=== PATIENT | male | born 1995 | race Hispanic/Latino ===

== ENCOUNTER 2022-01-21 16:09 | Observation (INO) | payer OTHER, SELFPAY ==
[2022-01-21 16:30] VITALS: BP 134/81; PULSE 87; RESP 20; TEMP 36.6; O2SAT 97
--- NOTE | 2022-01-21 18:47 | DI.US.S_ITS ---
PROCEDURE: US ABDOMEN LIMITED INDICATIONS: ? appy TECHNIQUE: Real-time focused scanning was performed of the abdomen with attention to the appendix, with image documentation. COMPARISON: None. FINDINGS: Appendix visualization: Yes. Appendix measurements: 0.4 cm. Associated findings: Echogenic fat: No. Appendiceal compressibility: Noncompressible. Appendicoliths: Not identified. Nearby free fluid: Small amount of free fluid. Lymphadenopathy: Not identified. Tenderness on exam: Present. IMPRESSION: The appendix is not dilated. However it appears noncompressible and there is a small amount of free fluid. Findings raise the possibility of acute appendicitis. Recommend further evaluation with CT abdomen pelvis with IV contrast. Comment: Findings were discussed with Barbara Haskins at the time of dictation. Dictated by: Kwasi Almeida M.D. on 01/21/2022 at 20:42 Approved by: Kwasi Almeida M.D. on 01/21/2022 at 20:45
[2022-01-21 18:51] LABS: Hematocrit 44.2 % (41-53); Hemoglobin 15.4 g/dL (13.5-17.5); Mean Corpuscular HGB Conc 34.8 % (30-36); Mean Corpuscular Hemoglobin 31.8 PG (26-34); Mean Corpuscular Volume 91.6 fL (80-100); Platelet Count 284 X10^3/uL (150-400); Red Blood Cell Count 4.83 X10^6/uL (4.5-5.9); Red Cell Distribution Width 13.1 % (11.6-14.8); White Blood Cell Count 13.3 X10^3/uL (4.5-11.0)
[2022-01-21 18:55] LABS: Add Manual Diff / Slide Review YES
[2022-01-21 19:16] LABS: Neutrophils Absolute Manual 10108 /uL (3000-5900); Total Cells Counted 100
[2022-01-21 19:17] LABS: RBC Morphology Normal Morphology
[2022-01-21 19:31] LABS: Alanine Aminotransferase 31 IU/L (<50); Albumin 4.4 g/dL (3.5-5.0); Albumin Globulin Ratio 1.4 (1.0-2.8); Alkaline Phosphatase 112 U/L (38-126); Aspartate Aminotransferase 29 IU/L (17-59); BUN Creatinine Ratio 21.2 (6-22); Bilirubin Total 0.5 mg/dL (0.2-1.3); Blood Urea Nitrogen 18 mg/dL (9-20); Calcium 8.9 mg/dL (8.4-10.2); Carbon Dioxide 28 mmol/L (22-32); Chloride 103 mmol/L (98-107); Estimated Glomerular Filt Rate > 60 mL/min (>60); Globulin 3.1 g/dL (1.7-4.1); Glucose 118 mg/dL (70-100); HEMOLYSIS 17 (0-50); Lipase 60 U/L (23-300); Potassium 3.9 mmol/L (3.4-5.1); Sodium 139 mmol/L (137-145); Total Protein 7.5 g/dL (6.3-8.2)
[2022-01-21 20:13] LABS: COVID19 -Nasal RAPID Negative (Negative)
--- NOTE | 2022-01-21 20:14 | ED.GENADULT ---
HPI - General Adult General Chief complaint: Abdominal Pain Stated complaint: r/o appendicitis Time Seen by Provider: 01/21/22 18:25 Source: patient Mode of arrival: Ambulatory History of Present Illness HPI narrative: Otherwise healthy 26-year-old gentleman presents with 24 hours of abdominal pain. Began last night with periumbilical pain and over the course of 24 hours has increased in intensity and localized to the right lower quadrant. He had a bowel movement earlier today that did not influences pain. He has nausea but not actually vomiting. Describes no dysuria or flank pain. No fevers but general malaise. He describes no chest pain, palpitations, dyspnea, headache. Related Data Allergies Allergy/AdvReac Type Severity Reaction Status Date / Time No Known Drug Allergies Allergy Verified 01/21/22 16:35 Review of Systems Review of Systems Narrative: Remainder of complete review of systems is otherwise unremarkable except for that included in the HPI. Patient History Social History Smoking Status: Never smoker Smoking Status: Never smoker alcohol intake frequency: holidays/special occasions only Substance Use Type: does not use Exam Initial Vital Signs Initial Vital Signs: Vital Signs Temperature 97.8 F 01/21/22 16:30 Pulse Rate 87 01/21/22 16:30 Respiratory Rate 20 01/21/22 16:30 Blood Pressure 134/81 01/21/22 16:30 Pulse Oximetry 97 01/21/22 16:30 Oxygen Delivery Method 01/21/22 16:30 General: Healthy appearing, in mild distress. Able to give a complete and coherent history. Well-nourished well-developed HEENT: Moist mucous membranes, normal sclera with reactive pupils, Neck: supple Respiratory: Lungs are clear to auscultation, no wheezing no rales no rhonchi. Full and symmetrical air movement Cardiac: Regular rate and rhythm no murmurs no bruits Abdomen: Mild diffuse tenderness with increasing left lower quadrant tenderness causing severe right lower quadrant tenderness and significant right lower quadrant tenderness with developing peritoneal signs. No flank pain Skin: Warm and dry, no rashes Neurologic: Grossly neurologically intact with no obvious asymmetries or abnormalities Extremities: No trauma, well perfused Psych: Cooperative, appropriate insight and affect Course Orders Ordered: ED Orders 01/21/22 20:46 CT abdomen pelvis w con Stat Sodium Chloride (Normal Saline 0.9%) 1,000 mls @ 150 mls/hr IV CONT MORRIS Last Admin: 01/21/22 23:36 Dose: 150 mls/hr Documented By: MESSI Piperacillin Sod/Tazobactam (Sod 3.375 gm/ Sodium Chloride) 100 mls @ 25 mls/hr IV Q8H MORRIS Last Admin: 01/21/22 23:33 Dose: 25 mls/hr Documented By: MESSI Vital Signs Vital signs: Vital Signs - 8 hr 01/21/22 16:30 Temperature 97.8 F Pulse Rate 87 Respiratory Rate 20 Blood Pressure 134/81 Pulse Oximetry 97 Oxygen Delivery Method Room Air Medical Decision Making Lab Data Result diagrams: 01/21/22 18:35 01/21/22 18:35 Labs: Lab Results 01/21/22 01/21/22 01/21/22 Range/Units 18:35 18:35 19:26 WBC 13.3 H (4.5-11.0) X10^3/uL RBC 4.83 (4.5-5.9) X10^6/uL Hgb 15.4 (13.5-17.5) g/dL Hct 44.2 (41-53) % MCV 91.6 (80-100) fL MCH 31.8 (26-34) PG MCHC 34.8 (30-36) % RDW 13.1 (11.6-14.8) % Plt Count 284 (150-400) X10^3/uL Neut % (Auto) Not Reportable Lymph % (Auto) Not Reportable [place] % (Auto) Not Reportable Eos % (Auto) Not Reportable Baso % (Auto) Not Reportable Lymph # (Auto) Not Reportable [place] # (Auto) Not Reportable Baso # (Auto) Not Reportable Total Counted 100 Seg Neutrophils % 76.0 H (38-70) % Lymphocytes % (Manual) 19.0 L (25-45) % Monocytes % (Manual) 2.0 (2-11) % Eosinophils % (Manual) 3.0 (2-4) % Neutrophils # (Manual) 84492 H (9180-3791) /uL RBC Morphology Normal morphology Sodium 139 (137-145) mmol/L Potassium 3.9 (3.4-5.1) mmol/L Chloride 103 (98-107) mmol/L Carbon Dioxide 28 (22-32) mmol/L BUN 18 (9-20) mg/dL Creatinine 0.85 (0.66-1.25) mg/dL Estimated GFR > 60 (>60) mL/min BUN/Creatinine Ratio 21.2 (6-22) Glucose 118 H (70-100) mg/dL Calcium 8.9 (8.4-10.2) mg/dL Total Bilirubin 0.5 (0.2-1.3) mg/dL AST 29 (17-59) IU/L ALT 31 (<50) IU/L Alkaline Phosphatase 112 (38-126) U/L Total Protein 7.5 (6.3-8.2) g/dL Albumin 4.4 (3.5-5.0) g/dL Globulin 3.1 (1.7-4.1) g/dL Albumin/Globulin Ratio 1.4 (1.0-2.8) Lipase 60 (23-300) U/L SARS-CoV-2 (PCR) Negative (Negative) Urine Dip Bedside Urine Glucose Negative Bedside Urine Bilirubin - Negative Bedside Urine Ketone - Negative Urine Specific [place] 1.015 Bedside Urine Occult Blood - Negative Bedside Urine pH 6.0 Bedside Urine Protein - Negative Bedside Urine Urobilinogen - Negative Bedside Urine Nitrite - Negative Bedside Urine Leukocytes - Negative Esterase Point of care testing: Urine Dip Bedside Urine Glucose Negative Bedside Urine Bilirubin - Negative Bedside Urine Ketone - Negative Urine Specific [place]herty 1.015 Bedside Urine Occult Blood - Negative Bedside Urine pH 6.0 Bedside Urine Protein - Negative Bedside Urine Urobilinogen - Negative Bedside Urine Nitrite - Negative Bedside Urine Leukocytes - Negative Esterase Imaging Data US - abdomen: Radiologist's Impression: FINDINGS:? Appendix visualization:? Yes. ? Appendix measurements:? 0.4 cm. ? Associated findings:? Echogenic fat:? No. Appendiceal compressibility:? Noncompressible. Appendicoliths:? Not identified. Nearby free fluid:? Small amount of free fluid. Lymphadenopathy:? Not identified. Tenderness on exam:? Present. ? IMPRESSION:? The appendix is not dilated.? However it appears noncompressible and there is a small amount of free fluid.? Findings raise the possibility of acute appendicitis.? Recommend further evaluation with CT abdomen pelvis with IV contrast. ? Comment: Findings were discussed with Barbara Haskins at the time of dictation. ? Dictated by: Kwasi Almeida M.D. on 01/21/2022 at 20:42 ? ? CT scan - abdomen/pelvis: Radiologist's Impression: FINDINGS:? Image quality:? Excellent.? ? Lung bases:? There is mild dependent atelectasis bilaterally.? ? Heart:? Heart is normal in size. ? ? ABDOMEN: Liver:? No mass lesion. Gallbladder:? Within normal limits without calcified gallstones.? ? Biliary ducts:? No biliary ductal dilatation.? ? Pancreas:? Unremarkable.? ? Spleen:? Normal in size.? ? Adrenal Glands:? No adrenal nodules.? ? Kidneys and Ureters:? No hydronephrosis.? ? ? Stomach and Bowel:? Stomach, small bowel loops, and colon are normal in caliber and wall thickness.? The appendix demonstrates abnormal enlargement measuring up to 1.1 cm with wall thickening and enhancement as well as periappendiceal fat stranding consistent with acute appendicitis.? There is a small amount of adjacent free fluid in the right pericolic gutter.? No free air.? No discrete abscess collection.? There is colonic diverticulosis without acute diverticulitis. ? Ventral Wall: ? No hernia.? Abdominal Nodes:? No retroperitoneal or mesenteric adenopathy by size criteria.? Vessels:? Aorta and inferior vena cava are normal in size.? ? PELVIS: Pelvic Organs:? Unremarkable.? ? Bladder:? Unremarkable.? ? Pelvic Nodes: No enlarged lymph nodes.? Miscellaneous: No inguinal hernias are seen. ? ? ? Bones:? Visualized osseous structures demonstrate no suspicious focal lesions. ? IMPRESSION:? ? 1. Findings consistent with acute appendicitis.? A small amount of adjacent free fluid is nonspecific but perforation cannot be excluded.? No associated abscess or free air.? ? The findings discussed with Dr. Haskins on 01/21/2022 at 10:20 p.m..? ? ? Dictated by: Lorenzo Chris M.D. on 01/21/2022 at 22:18 ? ? [facility] Narrative Medical decision making narrative: 26-year-old gentleman with right lower quadrant pain concerning for appendicitis mild leukocytosis. Ultrasound is equivocal. Is reviewed with Radiology, noncompressible but also nondilated appendix is appreciated with free fluid surrounding it. Patient has been clinically examined by Dr. Henley, general surgery who requests CT scan. Patient is feeling better after medication and CT scan is ordered. CT scan confirms acute appendicitis. Patient will be admitted to Dr. Henley. Fluids, NPO, Zosyn is started. Findings and anticipated course reviewed with the patient. At this time he is not acutely toxic, pain is controlled, Questions are answered he is safe for transfer to the floor. Discharge Plan Departure Patient Disposition: Admitted as Observation Clinical Impression: Acute appendicitis Admit Date/Time: 01/21/22 23:12 Admit Provider: Estiven Henley
--- NOTE | 2022-01-21 20:46 | DI.CT.S_ITS ---
PROCEDURE: CT ABDOMEN PELVIS W CON INDICATIONS: RLQ pain, equivocal US TECHNIQUE: After the administration of IV contrast, axial sections were acquired from the lung bases to the pubic symphysis. Coronal and sagittal reformats were performed. For radiation dose reduction, the following was used: automated exposure control, adjustment of mA and/or kV according to patient size. COMPARISON: [facility], , US ABDOMEN LIMITED, 01/21/2022, 18:54. FINDINGS: Image quality: Excellent. Lung bases: There is mild dependent atelectasis bilaterally. Heart: Heart is normal in size. ABDOMEN: Liver: No mass lesion. Gallbladder: Within normal limits without calcified gallstones. Biliary ducts: No biliary ductal dilatation. Pancreas: Unremarkable. Spleen: Normal in size. Adrenal Glands: No adrenal nodules. Kidneys and Ureters: No hydronephrosis. Stomach and Bowel: Stomach, small bowel loops, and colon are normal in caliber and wall thickness. The appendix demonstrates abnormal enlargement measuring up to 1.1 cm with wall thickening and enhancement as well as periappendiceal fat stranding consistent with acute appendicitis. There is a small amount of adjacent free fluid in the right pericolic gutter. No free air. No discrete abscess collection. There is colonic diverticulosis without acute diverticulitis. Ventral Wall: No hernia. Abdominal Nodes: No retroperitoneal or mesenteric adenopathy by size criteria. Vessels: Aorta and inferior vena cava are normal in size. PELVIS: Pelvic Organs: Unremarkable. Bladder: Unremarkable. Pelvic Nodes: No enlarged lymph nodes. Miscellaneous: No inguinal hernias are seen. Bones: Visualized osseous structures demonstrate no suspicious focal lesions. IMPRESSION: 1. Findings consistent with acute appendicitis. A small amount of adjacent free fluid is nonspecific but perforation cannot be excluded. No associated abscess or free air. The findings discussed with Dr. Haskins on 01/21/2022 at 10:20 p.m.. Dictated by: Lorenzo Chris M.D. on 01/21/2022 at 22:18 Approved by: Lorenzo Chris M.D. on 01/21/2022 at 22:22
[2022-01-21 23:15] VITALS: BP 121/57; PULSE 58; RESP 18; TEMP 36; O2SAT 99; BMI 22.7
[2022-01-21] MEDS: PIPERACILLIN/TAZO 3.375 GM in SODIUM CHLORIDE 0.9% 100 ML IV (23:33)
[2022-01-21] MEDS: SODIUM CHLORIDE 0.9% 1,000 ML 150 ML IV (23:36)
[2022-01-22] VITALS (19 sets, daily range): BP systolic 100–148; BP diastolic 52–96; PULSE 57–96; RESP 12–21; TEMP 36.2–36.7; O2SAT 93–100; BMI 22.7
--- NOTE | 2022-01-22 | PATH_ITS ---
[facility] Accession Number: [id number] . 01 Material submitted: . appendix - APPENDIX . 01 Clinical history: . R/O APPENDICITIS . 01 Diagnosis: Appendix, Appendectomy: Appendicitis and serositis with perforation. [facility] 01/26/2022 1723 Local . 01 Electronically signed: . Trang Marie MD, Pathologist NPI- [id number] . 01 Gross description: . Received in formalin in a specimen container, labeled with the patient's name and medical record number, appendix, is an intact appendix specimen with a stapled resection margin with a great amount of fibroadipose tissue that measures 6.5 cm in length and 0.6 cm in diameter. The stapled resection margin measures 1.2 cm and is entirely inked in blue. The serosal surface is diffusely dusky, pink-odell, focally covered by hemorrhagic and grayish exudate. Distinct perforations are grossly identified on the serosal surface. The specimen is opened to reveal a 0.5 cm in diameter lumen filled by fecal content. The average wall thickness is 0.2 cm. Lead Pastor sections are submitted as follows: A1: Appendix bisected and entirely submitted. A2: Specimen body and resection margin. ([id number]) /FRR 01/26/2022 0232 Local . 01 Pathologist provided ICD-10: K35.20 . 01 CPT . 115049 Specimen Comment: A courtesy copy of this report has been sent to [phone] Performed at: 01 [facility] [address] [place] [address] [address] [facility], [place], [place] [id number] MD Lorenzo Gama MD Phone: [phone]
[2022-01-22] MEDS: PIPERACILLIN/TAZO 3.375 GM in SODIUM CHLORIDE 0.9% 100 ML IV ×2 (06:14→15:04)
--- NOTE | 2022-01-22 09:27 | CM.DANOTE ---
DCP Assessment: Payor: [facility] PCP: Unknown Pt is a 26 y.o. M who arrived to the ED with abdominal pain. Pt states that he has nausea but no vomiting. Pt states that he has had this pain for the past [address] scan was ordered and confirmed acute appedicitis. Pt admitted under OBS for lap appendectomy. DCP met with pt this morning bedside. Pt laying in bed watching TV. DCP introduced herself and role. Pt states that he does not remember the name of his PCP but she is located here at the hospital. Pt states that he lives in a tent with some roommates. Pt states that he currently works but does not drive POV. Pt states that his friends or employer helps with plans to drive him around when needed. Pt states that when he is able to get discharged, his employer is helping with coordination of transport. Pt declines use of DME. DCP identifies that transport back home could be a potential barrier. DCP to continue to monitor. P: Pt to have a lap appendectomy today. Pt to discharge home when medically stable via employer or friend POV. Diamante Chino RN/SIOBHAN Discharge Planning/Care Management CM Discharge Assessment Start: 01/22/22 08:41 Freq: Status: Active Protocol: Document 01/22/22 09:25 KAILASH (Rec: 01/22/22 09:27 [id number]) Discharge Planning Assessment Assigned Ob Tech Diamante Chino RN/SIOBHAN Advance Directives? No History Provided By Patient,Medical Record Comment Pt states that he lives in a tent with roommates. Household Members friend(s) Type of transporation used prior to Relies on Others admit Independent with ADL's Yes Is patient alert and oriented? Yes Caregiver for Another No Discharge Plan Home Referrals Initiated None needed Additional Comment At this time Whiteboard Updated in Patient Room with Yes name and ext. # of Ob Tech Review Status In Process Please Provide Date Initial DC 01/22/22 Assessment Was Performed Next Review Type Continued Stay Review
[2022-01-22] MEDS: LACTATED RINGERS 1,000 ML 42 ML IV ×2 (14:30→16:08)
--- NOTE | 2022-01-22 14:33 | P.HP_ITS ---
History of Present Illness History of Present Illness Date Patient Seen: 01/22/22 Time Patient Seen: 14:33 Chief complaint: r/o appendicitis Narrative: 26-year-old healthy male admitted to the hospital with acute appendicitis. Developed right lower quadrant pain for the past 2 days. Associated nausea no vomiting. Presented to the emergency room yesterday 01/21/2022 at [facility] for further evaluation. At admission S workup was significant for WBC 13, CT abdomen pelvis demonstrates acute appendicitis without abscess. he has never had prior abdominal surgery. No significant past medical history. He feels improvement in his abdominal pain since admission. He has received Zosyn Patient History Family & Social History Social History: household members friend(s) Tobacco & Substance use: Smoking Status Never smoker alcohol intake frequency holiday/special occasion Substance Use Type does not use Meds Home Medications and Allergies Allergies Allergy/AdvReac Type Severity Reaction Status Date / Time No Known Drug Allergies Allergy Verified 01/21/22 16:35 Exam Vital Signs (past 8 hours): - 01/22/22 08:20 01/22/22 07:52 Temperature 97.5 F L Pulse Rate 57 L Respiratory Rate 16 Blood Pressure 104/57 L Pulse Oximetry 99 96 Oxygen Delivery Method Room Air Oxygen Flow Rate 0 Oxygen Delivery Method Room Air Oxygen Flow Rate 0 Narrative Exam Narrative: GENERAL: Adult male in no apparent distress HEENT: No scleral icterus CV: Regular rate, no peripheral edema LUNGS: No increased work of breathing. Patient speaks in full sentences without oxygen support. ABDOMEN: Tender right lower quadrant. No peritonitis. NEURO: Nonfocal, normal strength throughout SKIN: Warm and dry Objective Labs Result Diagrams: 01/21/22 18:35 01/21/22 18:35 Labs: Laboratory Results - last 24 hr 01/21/22 01/21/22 01/21/22 18:35 18:35 19:26 WBC 13.3 H RBC 4.83 Hgb 15.4 Hct 44.2 MCV 91.6 MCH 31.8 MCHC 34.8 RDW 13.1 Plt Count 284 Neut % (Auto) Not Reportable Lymph % (Auto) Not Reportable [place] % (Auto) Not Reportable Eos % (Auto) Not Reportable Baso % (Auto) Not Reportable Lymph # (Auto) Not Reportable [place] # (Auto) Not Reportable Baso # (Auto) Not Reportable Total Counted 100 Seg Neutrophils % 76.0 H Lymphocytes % (Manual) 19.0 L Monocytes % (Manual) 2.0 Eosinophils % (Manual) 3.0 Neutrophils # (Manual) 65061 H RBC Morphology Normal morphology Sodium 139 Potassium 3.9 Chloride 103 Carbon Dioxide 28 BUN 18 Creatinine 0.85 Estimated GFR > 60 BUN/Creatinine Ratio 21.2 Glucose 118 H Calcium 8.9 Total Bilirubin 0.5 AST 29 ALT 31 Alkaline Phosphatase 112 Total Protein 7.5 Albumin 4.4 Globulin 3.1 Albumin/Globulin Ratio 1.4 Lipase 60 SARS-CoV-2 (PCR) Negative Assessment & Plan Assessment and plan (1) Acute appendicitis: Status: Acute Assessment & Plan narrative: 26-year-old male with symptoms and radiographic findings of acute appendicitis. CT abdomen pelvis was personally reviewed and interpreted. Demonstrates dilated appendix small amount of free fluid no abscess. We discussed management including both operative and non operative management. Following discussion his preference is to proceed with laparoscopic appendectomy. Overview of the operation was discussed with the patient. Surgical risks including bleeding, infection, staple line leak, damage to surrounding structures, hernia formation were discussed. His questions have been answered and he is in agreement with this plan. Time Spent With Patient Critical Care time: I spent a total of [] minutes of critical care time on this patient's care today; this time is exclusive of procedural time. Quality VTE Deep Vein Thrombosis/Pulmonary Embolism Present on Admission: No
[2022-01-22] MEDS: BUPIVACAINE 0.25% (PF) VIAL 30 ML INJ (15:39)
--- NOTE | 2022-01-22 15:47 | SUR.OPER ---
Supine on padded OR bed, head on pillow, right arm secured on padded arm boards at <90 degrees abduction, left arm padded at tucked at side, legs uncrossed, safety belt at thigh, tape over blanket over lower legs. Gel pad placed under bilateral heels.
--- NOTE | 2022-01-22 16:15 | P.OP_ITS ---
Operative Date/Time/Diagnoses Date of procedure: 01/22/22 Time of procedure: 16:15 Pre-op diagnosis: Acute appendicitis Post-op diagnosis: same Procedure & Clinicians Procedure: Laparoscopic appendectomy Same procedure as scheduled: Yes Indications: Symptoms and radiographic findings consistent with acute appendicitis. Surgeon: Arturo Mendoza Click Yes if Unassisted: Yes Anesthesia Type: General Operative Notes Findings: Partially retrocecal appendix. Acutely inflamed but not perforated. Specimen(s): other (Appendix) Estimated Blood Loss (mL): 50 Procedure in detail: Patient was brought to the operating room placed supine on the table. Bilateral lower extremity compression devices were applied. Anesthesia was induced and they intubated with an endotracheal tube. They received 3.375 g of Zosyn prior to skin incision. The left arm was tucked and appropriately padded. They were prepped and draped in sterile fashion. Time-out was performed. An infraumbilical incision was made the umbilical stalk was grasped and elevated and incision was made and the abdomen was entered atraumatically. A 12 mm balloon trocar was then placed through the incision and pneumoperitoneum of 14 mm Hg was established. The scope was then inserted and the abdomen inspected, there was no evidence of injury upon entry. Two 5 mm ports were placed under direct visualization, one in the left lower quadrant and second in the lower midline. A thorough laparoscopic evaluation was performed inspecting all four quadrants. The patient was then tilted right side up. The small bowel was then swept to the upper aspect of the abdomen. The tenie were followed to the base of the cecum where the appendix was identified. It was partially retrocecal and I mobilized the cecum medially in order to completely expose it by incising the white line of Toldt. The appendix was was mobilized from its lateral attac hments. It was acutely inflamed but not perforated. The appendix was grasped and a window within the mesentery was made at the base of the appendix using the [place] dissector with care to avoid injuring the cecum. The mesoappendix was then divided using the endo-stapler with a staple length of 2.5 mm-white load. The mesenteric staple line was inspected for hemostasis. The appendix was then a mputated flush at the cecum using the endo-stapler blue load. The specimen was retrieved using a endoscopic retrieval bad through the 10 mm infra-umbilical port. The right paracolic gutter and the pouch of Hieu were irrigated The 5 mm ports were then removed under direct visualization. The umbilical fascial incision was closed with 0 Vicryl in a figure-eight fashion. The skin wounds were irrigated and closed with 4-0 Monocryl followed by the application of Dermabond. Sponge instrument count at the end of the operation was correct. The patient tolerated procedure well was extubated and transferred to the postoperative care unit in stable condition. Complications: none Post-operative Condition: stable Disposition: Acute Care Plan for aftercare: May discharge later today
[2022-01-22] MEDS: OXYCODONE/ACETAMINOPHEN 5/325 TABLET 1 TAB PO (16:53)
--- NOTE | 2022-01-22 16:59 | SUR.PHASEI ---
Pt A&Ox4, reports pain as tolerable, denies nausea, dressing C/D/I, VSS, and ready to transfer to room. Report given to OMAR Rueda using SBAR with time allowed for questions. Left message to notifiy Dr. Mendoza of some challenges with discharge with RX, and ride, made OMAR Rueda aware.
[2022-01-22] MEDS: ACETAMINOPHEN 325 MG TABLET 650 MG PO ×2 (19:21→23:50)
--- NOTE | 2022-01-22 19:41 | PC.NURSE ---
Pt is A&OX3, VSS, afebrile on RA. C/o intermittent abdominal pain but declines any pain medications this shift. He is ambulates independently with steady gait in his room. He is taken to PRE Op at 1430 this afternoon and returns at 1720. He is A&OX3. Lap sites x3 c/d/i, he denies n/v and tolerates po diet well. RN Left message for MD Mendoza pt requesting discharge tomorrow a.m. as he lives on [facility] and transportation will be available for him tomorrow a.m. Pt reports pain manageable this evening.
[2022-01-22] MEDS: ONDANSETRON 4 MG/2 ML INJ IV (20:34)
[2022-01-22] MEDS: SODIUM CHLORIDE 0.9% 1,000 ML 150 ML IV (20:34)
--- NOTE | 2022-01-22 20:53 | PC.NURSE ---
Patient is alert and oriented. Breath sounds CTA with RA sat of 98%. HRR. Denied nausea at time of assessment but now complaining of nausea so medicated with Zofran. No BT auscultated and denies flatus. Up to bathroom with SBA and denied dysuria with urination. Complained of 5/10 abdominal pain and was medicated with scheduled Tylenol at start of shift; declined oxycodone. Is able to move himeslf in bed. Steri-strips intact to 3 lap sites on abdomen; CDI. Agreeable to having bilateral calf SCD's placed after giving information about DVT prevention. Fall risk score is low so bed alarm is not activated but patient instructed to call for assistance when getting out of bed.
[2022-01-23 01:24] VITALS: BP 110/60; PULSE 67; RESP 17; TEMP 36.4; O2SAT 98
[2022-01-23] MEDS: SODIUM CHLORIDE 0.9% 1,000 ML 150 ML IV (03:52)
[2022-01-23 05:42] VITALS: BP 125/59; PULSE 83; RESP 17; TEMP 37.1; O2SAT 97
[2022-01-23] MEDS: ACETAMINOPHEN 325 MG TABLET 650 MG PO (05:52)
[2022-01-23 07:48] VITALS: BP 134/75; PULSE 97; RESP 18; O2SAT 99
[2022-01-23 09:03] VITALS: O2SAT 99
[2022-01-23 11:00] VITALS: BP 129/76; TEMP 37.1
[2022-01-23 11:01] VITALS: BMI 22.7
--- NOTE | 2022-01-23 11:37 | PC.NURSE ---
Day shift: Pt left unit at approx 1130. He has all personal belongings. His friend is here to help him get back to [facility]. They are walking onto the [id number] Taking a taxi to the [facility] landing. Paperwork signed and all questions answered. He was given MD script. VS remain WNL. RA 99%. Lap sites CDI. No c/o pain or discomfort. Steady on feet.
== END 2022-01-23 11:39 | disposition home or self-care (01) ==
LOC: ED 23:10 → AC 23:14
PROVIDERS: Emergency Medicine; Surgery; Admitting Provider Surgery; Emergency Provider Emergency Medicine; Referring Provider Emergency Medicine; Visit Provider Surgery
PROC: 0DTJ4ZZ Resection of Appendix, Percutaneous Endoscopic Approach (ICD-10-PCS; CPT 44970; principal; 2022-01-22 16:15)
DX: K35.80 Unspecified acute appendicitis (principal); Z20.822 Contact with and (suspected) exposure to COVID-19
CPT/HCPCS: 44970; 36415; 74177; 76705; 80053; 81003; 83690; 85007; 85025; 87635; 96365; 96366; 96375; 99220; 99283; 99284; C9803; G0378; J1100; J1885; J2250; J2405; J2543; J2704; J3010; Q9967